=== PATIENT | male | born 1990 | race Native Hawaiian/Other Pacific Islander ===

== ENCOUNTER 2018-03-18 13:05 | Emergency (ER) | payer SELFPAY ==
[2018-03-18 13:51] LABS: BASO % 0.5 % (0.0-1.0); EOS # 0.1 10*3/uL (0.0-0.4); EOS % 0.8 % (1.0-4.0); HEMOGLOBIN 15.9 g/dl (14.0-18.0); LYMPH # 3.1 10*3/uL (1.3-4.4); MEAN CELL VOLUME 87.7 fl (80.0-94.0); MEAN CORPUSCULAR HGB 29.7 pg (27.0-31.0); MEAN CORPUSCULAR HGB CONC 33.8 g/dl (33.0-37.0); MEAN PLATELET VOLUME 9.4 fl (9.6-12.3); MONO # 0.5 10*3/uL (0.1-1.0); MONO % 6.3 % (3.0-9.0); NEUT # 4.8 10*3/uL (2.3-7.9); NEUT % 56.2 % (47.0-73.0); PLATELET COUNT AUTOMATED 295 10*3/uL (130-400); RED BLOOD COUNT 5.36 10*6/uL (4.50-5.90); RED CELL DISTRI WIDTH 12.9 % (0-14.5); WHITE BLOOD COUNT 8.5 10*3/uL (4.8-10.8)
[2018-03-18 14:03] LABS: ALBUMIN 3.7 gm/dl (3.1-4.5); ALKALINE PHOSPHATASE 104 U/L (45-117); BUN 11 mg/dl (7-24); CHLORIDE 106 mmol/L (98-107); CREATININE 0.71 mg/dL (0.70-1.30); POTASSIUM 4.1 mmol/L (3.5-5.1); SGOT/AST 22 IU/L (3-35); SGPT/ALT 53 U/L (12-78); SODIUM 141 mmol/L (136-145); TOTAL PROTEIN 8.6 gm/dL (6.4-8.2)
== END 2018-03-18 14:13 | disposition home or self-care (01) ==
LOC: ED 13:05
PROVIDERS: Emergency Medicine
DX: R42 Dizziness and giddiness (principal); R20.2 Paresthesia of skin; E66.01 Morbid (severe) obesity due to excess calories; F17.200 Nicotine dependence, unspecified, uncomplicated

== ENCOUNTER 2018-03-21 10:59 | Emergency (ER) | payer SELFPAY ==
[~2018-03-21] VITALS: Ht 165.1 cm; Wt 127.0 kg
--- NOTE | ~2018-03-21 | EKG ---
[place], [place] ELECTROCARDIOGRAM REPORT NAME: JUAN MANUEL MINOR UNIT #: [id number] ROOM: DOCTOR: ELISA DRAFT REPORT BIRTHDATE: [birth year] [facility] Test Date: 2018-03-21 Test Time: 12:21:07 Pat Name: JUAN MANUEL MINOR Department: Room: Gender: Improvement Lead: MP : 1990 Requested By: RODO GODINEZ Order Number: [id number] Reading MD: Zayda Haines MD Measurements Intervals [place] Rate: 65 P: 10 MD: 150 QRS: -2 QRSD: 99 T: 16 QT: 405 QTc: 422 Interpretive Statements Sinus rhythm ST elev, probable normal early repol pattern Normal ECG Electronically Signed On 03-23-2018 9:42:19 PST by Zayda Haines MD CM:EKGRPT:ELECTROCARDIOGRAM REPORT 1221 [id number] RODO SCANLON DRAFT REPORT RODO GODINEZ DO
[2018-03-21 11:57] LABS: BASO % 0.4 % (0.0-1.0); EOS % 0.2 % (1.0-4.0); HEMOGLOBIN 16.6 g/dl (14.0-18.0); LYMPH # 1.8 10*3/uL (1.3-4.4); LYMPH % 22.7 % (27.0-41.0); MEAN CELL VOLUME 86.8 fl (80.0-94.0); MEAN CORPUSCULAR HGB CONC 34.6 g/dl (33.0-37.0); MEAN PLATELET VOLUME 9.6 fl (9.6-12.3); MONO # 0.5 10*3/uL (0.1-1.0); MONO % 5.7 % (3.0-9.0); NEUT # 5.7 10*3/uL (2.3-7.9); NEUT % 70.8 % (47.0-73.0); PLATELET COUNT AUTOMATED 296 10*3/uL (130-400); RED BLOOD COUNT 5.53 10*6/uL (4.50-5.90); RED CELL DISTRI WIDTH 12.6 % (0-14.5); WHITE BLOOD COUNT 8.1 10*3/uL (4.8-10.8)
[2018-03-21 12:15] LABS: ALBUMIN 3.8 gm/dl (3.1-4.5); ALKALINE PHOSPHATASE 111 U/L (45-117); BUN 10 mg/dl (7-24); CHLORIDE 106 mmol/L (98-107); PHOSPHOROUS 3.6 mg/dL (2.5-4.9); SGOT/AST 25 IU/L (3-35); SGPT/ALT 60 U/L (12-78); SODIUM 138 mmol/L (136-145); TOTAL PROTEIN 9.1 gm/dL (6.4-8.2)
[2018-03-21 12:17] LABS: FREE T4 1.21 ng/dl (0.76-1.46)
[2018-03-21] MEDS ORDERED: NEURONTIN100 MG PO (15:28)
== END 2018-03-21 15:38 | disposition home or self-care (01) ==
LOC: ED 10:59
PROVIDERS: Emergency Medicine
DX: M79.2 Neuralgia and neuritis, unspecified (principal); R05 Cough

== ENCOUNTER → 2018-03-27 | Outpatient (CLI) | payer SELFPAY ==
[~2018-03-27] MED LIST: NEURONTIN100 MG PO
[2018-03-28 05:08] LABS: TOTAL PROTEIN, SERUM 8.2 g/dL (6.0-8.5)
[2018-03-28 07:07] LABS: HEPATITIS B SURFACE AG Negative (Negative); HEPATITIS C VIRUS ANTIBODY 0.1 s/co (0.0-0.9)
[2018-03-28 15:11] LABS: A/G RATIO 0.8 (0.7-1.7); ALBUMIN 3.7 g/dL (2.9-4.4); ALPHA-1-GLOBULIN 0.3 g/dL (0.0-0.4); ALPHA-2-GLOBULIN 1.1 g/dL (0.4-1.0); BETA GLOBULIN 1.3 g/dL (0.7-1.3); GAMMA GLOBULIN 1.9 g/dL (0.4-1.8); GLOBULIN, TOTAL 4.5 g/dL (2.2-3.9); M-SPIKE Not Observed g/dL (Not Observed)
[2018-03-28 16:07] LABS: ATYPICAL PANCA <1:20 titer (Neg:<1:20); CYTOPLASMIC (C-ANCA) <1:20 titer (Neg:<1:20)
[2018-03-29 14:07] LABS: ALBUMIN, URINE 30.3 % (.); ALPHA-1-GLOBULIN, URINE 3.6 % (.); ALPHA-2-GLOBULIN, URINE 15.5 % (.); BETA GLOBULIN, URINE 26.8 % (.); GAMMA GLOBULIN, URINE 23.8 % (.); M-SPIKE, % Not Observed % (Not Observed); PROTEIN,TOTAL - URINE RANDOM 19.9 mg/dL (Not Estab.)
== END | disposition home or self-care (01) ==
LOC: LAB 11:46
PROVIDERS: Family Medicine
DX: E88.09 Other disorders of plasma-protein metabolism, not elsewhere classified (principal); M25.50 Pain in unspecified joint; R20.2 Paresthesia of skin

== ENCOUNTER → 2018-04-02 | Outpatient (CLI) | payer SELFPAY | END | disposition home or self-care (01) | LOC: MRI 10:46 | DX: H93.13 Tinnitus, bilateral (principal); M43.6 Torticollis; R51 Headache; R42 Dizziness and giddiness; R20.2 Paresthesia of skin ==

== ENCOUNTER → 2019-11-08 | Outpatient (CLI) | payer BC | END | disposition home or self-care (01) | LOC: RAD 14:26 | PROVIDERS: ATTEND Chiropractor | DX: M54.2 Cervicalgia (principal); M54.5 Low back pain ==

== ENCOUNTER 2019-11-29 09:20 | Emergency (ER) | payer OTHER, BC ==
[2019-11-29] MEDS ORDERED: METHOCARBAMOL500 M1 PO (11:43)
[2019-11-29] MEDS ORDERED: MEDROL DOSEPAK4 MG PO (11:43)
[2019-11-29] MEDS ORDERED: NAPROSYN500 MG PO (11:43)
== END 2019-11-29 11:58 | disposition home or self-care (01) ==
LOC: ED 09:20
DX: M54.40 Lumbago with sciatica, unspecified side (principal)

== ENCOUNTER → 2021-03-10 | Outpatient (CLI) | payer BC ==
[~2021-03-10] MED LIST changes: +MEDROL DOSEPAK4 MG PO; +METHOCARBAMOL500 M1 PO; +NAPROSYN500 MG PO
== END | disposition home or self-care (01) ==
LOC: RAD 13:17
PROVIDERS: ATTEND Family Medicine
DX: U07.1 COVID-19 (principal); I51.7 Cardiomegaly

== ENCOUNTER → 2022-08-30 | Outpatient (CLI) | payer BC ==
[2022-08-30 08:25] LABS: HEMATOCRIT 45.5 % (42.0-52.0); MEAN CELL VOLUME 90.1 fl (80.0-94.0); MEAN CORPUSCULAR HGB 30.9 pg (27.0-31.0); MEAN CORPUSCULAR HGB CONC 34.3 g/dl (33.0-37.0); MEAN PLATELET VOLUME 9.3 fl (9.6-12.3); RED BLOOD COUNT 5.05 10*6/uL (4.50-5.90); RED CELL DISTRI WIDTH 13.1 % (0-14.5)
[2022-08-30 09:11] LABS: VITAMIN D, 25-HYDROXY 16.2 ng/mL (30-100)
[2022-08-30 11:52] LABS: ALKALINE PHOSPHATASE 86 U/L (46-116); BUN 10 mg/dl (9-23); CHLORIDE 105 mmol/L (98-107); CHOLESTEROL 203 mg/dL (<200); FREE T4 1.18 ng/dl (0.89-1.76); LDL CHOLESTEROL 130 mg/dL (9-159); SGPT/ALT 40 U/L (10-49); TOTAL PROTEIN 7.7 gm/dL (6.0-8.0); TRIGLYCERIDES 146 mg/dl (<150)
== END | disposition home or self-care (01) ==
LOC: LAB 07:51
PROVIDERS: ATTEND Family Medicine
DX: Z13.220 Encounter for screening for lipoid disorders (principal); E55.9 Vitamin D deficiency, unspecified; R53.83 Other fatigue; R00.2 Palpitations; E74.00 Glycogen storage disease, unspecified; F41.1 Generalized anxiety disorder